=== PATIENT | female | born 1975 | race Caucasian/White ===

== ENCOUNTER 2018-02-08 15:59 | Emergency (ER) | payer BC ==
[2018-02-08 16:10] VITALS: BP 153/70
--- NOTE | 2018-02-08 17:04 | ED.ADGEN ---
Adult General Chief Complaint Chief Complaint Bilateral foot pain HPI HPI Patient is a 42-year-old female who presents with bilateral foot pain. Patient reports left medial heel pain and right medial arch pain. Patient has been treating with ibuprofen, arch support and a strap for treatment of possible plantar fasciitis. Patient currently does not have a primary care physician and has not been evaluated for complaint. 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 No other acute symptoms or complaints. [] Review of Systems Review of Systems ROS as per HPI All other systems were reviewed and found to be within normal limits, except as documented in this note. Physical Exam Physical Exam Constitutional: Well developed, well nourished, no acute distress, non-toxic appearance. [] HENT: Normocephalic, atraumatic, bilateral external ears normal, oropharynx moist, nose normal. [) Extremities: No deformity bruising, or appreciated swelling. Left medial heel pain/tenderness, right medial arch pain, tenderness. No deformity bony point tenderness.[] Neurologic: Alert and oriented X 3, normal motor function, normal sensory function, no focal deficits noted. [] Psychologic: Affect normal, judgement normal, mood normal. [] EKG EKG [] Radiology/Procedures Radiology/Procedures [] Course & Med Decision Making Course & Med Decision Making Pertinent Labs and Imaging studies reviewed. (See chart for details) [Follow up with PCP with consideration for referral for podiatry and continued supportive care recommended.] Final Impression Final Impression [1. Bilateral foot pain] Dragon Disclaimer Dragon Disclaimer This electronic medical record was generated, in whole or in part, using a voice recognition dictation system. LYNNE BEAN DO February 08, 2018 17:04
== END 2018-02-08 17:15 | disposition home or self-care (01) ==
LOC: ER 15:59
DX: M79.671 Pain in right foot (principal); M79.672 Pain in left foot
CPT/HCPCS: 99281

== ENCOUNTER 2020-05-05 14:50 | Emergency (ER) | payer BC, OTHER ==
[~2020-05-05] VITALS: Ht 175.3 cm; Wt 107.0 kg
[2020-05-05 15:00] VITALS: BP 143/89
--- NOTE | 2020-05-05 15:59 | RAD ---
INDICATION: Reason: R sided chest wall pain - fall sunday, bruising on lower rt ribs / Spl. Instructions: / History: COMPARISON: None. FINDINGS: 2 view of chest obtained. No focal airspace consolidation or pulmonary edema. Cardiac silhouette is unremarkable. Degenerative changes of the spine with osteophyte formation. A definite grossly displaced fracture is not seen. IMPRESSION: * No focal airspace consolidation or edema. Electronically signed by: Maged Young MD (05/05/2020 3:56 PM) [id number]
[2020-05-05] MEDS ORDERED: LIDO700A21 TP (16:38)
--- NOTE | 2020-05-05 16:38 | PHYS DOC ---
Past History Past Medical History: Anemia Past Surgical History: Alcohol Use: None Drug Use: None Adult General Chief Complaint Chief Complaint: RIB PAIN HPI HPI Patient is a 44 year old female who presents with R sided chest wall pain and multiple abrasions after a fall several days prior to arrival. She states she has some mild pain when she moves around in her R chest. Denies any shortness of breath. Pain is achy in nature. She has not tried anything to help with it. Review of Systems Review of Systems General: Denies fever, chills, sweats, fatigue Eyes: Denies drainage, blurred vision, eye redness HENT: Denies rhinorrhea, sore throat, earache Respiratory: Denies cough, shortness of breath, wheezing Cardiac: Denies edema, palpitations. Reports chest pain GI: Denies abdominal pain, Nausea, vomiting MSK: Denies back pain, neck pain Skin: Denies rash, jaundice. Reports multiple wounds Neuro: Denies headache, dizziness Psychiatric: Denies SI/HI Allergies Allergies Allergies Coded Allergies Type Severity Reaction Last Updated Verified aspirin Allergy Unknown 05/05/20 Yes ibuprofen Allergy Unknown 05/05/20 Yes Physical Exam Physical Exam General: Awake, alert, NAD. Well Nourished, well hydrated. Cooperative HEENT: Atraumatic, EOMI, PERRL, airway patent, moist oral mucosa Neck: Supple, trachea midline Respiratory: CTA bilaterally, normal effort, no wheezing/crackles, chest wall tenderness on R with bruising CV: RRR, no murmur, cap refill <2 GI: Soft, nondistended, nontender, no masses MSK: No obvious deformities Skin: Warm, dry, bruising to R chest wall, multiple abrasions to R hand and L upper arm Neuro: A&O x3, speech NL, sensory and motor grossly intact, no focal deficits Psych: Normal affect, normal mood, not suicidal or homicidal Current Patient Data Vital Signs Vital Signs Date Time Temp Pulse Resp B/P (MAP) Pulse Ox O2 Delivery O2 Flow Rate FiO2 05/05/20 15:00 98.2 95 16 143/89 (107) 98 Room Air EKG EKG [] Radiology/Procedures Radiology/Procedures [] Course & Med Decision Making Course & Med Decision Making Pertinent Labs and Imaging studies reviewed. (See chart for details) Patient presents with R sided chest all pain. She has a small bruise with minimal tenderness. CXR is negative for rib fx or pneumothroax. Dragon Disclaimer Dragon Disclaimer This electronic medical record was generated, in whole or in part, using a voice recognition dictation system. Departure Departure: Impression: Primary Impression: Chest wall pain Disposition: HOME/RESIDENCE PRIOR TO ADM Condition: STABLE Referrals: PCP,NO (PCP) Patient Instructions: Chest Contusion Scripts Lidocaine (Lidocaine PATCH ) 1 Each Adh..patch 1 EACH TP DAILY for FOR LOCAL PAIN for 3 Days, #3 PATCH REMOVE AFTER 12 HOURS Prov: KRZYSZTOF DUNN MD 05/05/20 Justification of Admission: Justification of Admission: Justification of Admission Dx: No KRZYSZTOF DUNN MD May 05, 2020 16:38
== END 2020-05-05 17:13 | disposition home or self-care (01) ==
LOC: ER 14:50
DX: S20.211A Contusion of right front wall of thorax, initial encounter (principal); S60.511A Abrasion of right hand, initial encounter; S40.812A Abrasion of left upper arm, initial encounter; Z86.2 Personal history of diseases of the blood and blood-forming organs and certain disorders involving the immune mechanism; Z88.6 Allergy status to analgesic agent; W18.39XA Other fall on same level, initial encounter; Y93.89 Activity, other specified; Y92.89 Other specified places as the place of occurrence of the external cause; Y99.8 Other external cause status
CPT/HCPCS: 71046; 99283